=== PATIENT | female | born 1940 | race Caucasian/White ===

== ENCOUNTER 2016-10-23 08:50 | Emergency (ER) | payer OTHER ==
[~2016-10-23] VITALS: Ht 160 cm; Wt 74.0 kg
[2016-10-23] MEDS ORDERED: LEVOTHYROXINE75 MCG PO (09:07)
[2016-10-23] MEDS ORDERED: ATORVASTATIN CA20 MG PO (09:07)
[2016-10-23] MEDS ORDERED: VITAMIN D2000 UNI1 PO (09:08)
[2016-10-23] MEDS ORDERED: PROLIA60 MG/1 ML SC (09:08)
[2016-10-23] MEDS ORDERED: TUMS500 MG PO (09:09)
[2016-10-23] MEDS ORDERED: TYLENOL WITH C1 EACH PO (10:25)
[2016-10-23 10:57] VITALS: BP 153/89
== END 2016-10-23 10:57 | disposition home or self-care (01) ==
LOC: EME 08:50
DX: S39.012A Strain of muscle, fascia and tendon of lower back, initial encounter (principal); R51 Headache; V49.40XA Driver injured in collision with unspecified motor vehicles in traffic accident, initial encounter; Y92.410 Unspecified street and highway as the place of occurrence of the external cause; E78.5 Hyperlipidemia, unspecified; E03.9 Hypothyroidism, unspecified
CPT/HCPCS: 71020; 99281; 99284